=== PATIENT | female | born 1995 | race Caucasian/White ===

== ENCOUNTER 2019-09-28 06:36 | Inpatient (IN) | payer SELFPAY ==
[2019-09-24 13:42] LABS: BASOPHILS % 0.3 % (0.0-1.0); EOSINOPHILS # (AUTO) 0.1 (0.0-0.4); EOSINOPHILS % 0.7 % (0.0-6.0); HEMOGLOBIN 12.4 g/dL (12.0-16.0); LYMPHOCYTES % 22.8 % (18.0-39.1); MEAN CORPUSCULAR HEMOGLOBIN 25.2 pg (28-32); MEAN CORPUSCULAR VOLUME 81.3 fL (81-99); MONOCYTES # (AUTO) 0.5 (0.2-0.8); MONOCYTES % 5.2 % (4.4-11.3); NEUTROPHILS # (AUTO) 6.1 (2.1-6.9); NEUTROPHILS % 70.7 % (38.7-80.0); PLATELET COUNT 380 x10e3/uL (140-360); RED BLOOD COUNT 4.92 x10e6/uL (3.6-5.1); RED CELL DISTRIBUTION WIDTH 14.6 % (11.7-14.4)
[~2019-09-28] VITALS: Ht 157.5 cm; Wt 86.6 kg
[~2019-09-28 06:36] MED LIST: LUTERA1 EACH PO; NEXIUM20 MG PO; PROBIOTICS PO; TRAZODONE HCL50 MG PO; VIIBRYD1 EAC1 PO; WELLBUTRIN SR150 MG PO
[2019-09-28] MEDS ORDERED: MELATONIN3 MG PO (06:50)
[2019-09-28] MEDS ORDERED: CEFAZOLIN SOD 1 GM/NS 50ML 100 ML IV ONE (07:06)
[2019-09-28] MEDS ORDERED: BUPIVACAINE 0.25% 30ML SDV INJ ONE (07:18)
[2019-09-28] MEDS ORDERED: LIDOCAINE HCL (LTA) 4 ML SOLN ONE (08:20)
[2019-09-28] MEDS ORDERED: SCOPOLAMINE 1.5 MG PATCH ONE (08:20)
[2019-09-28] MEDS ORDERED: ACETAMINOPHEN 1000 MG/100 ML 100 ML IV ONE (08:20)
[2019-09-28] MEDS ORDERED: DEXAMETHASONE SOD PHOS 10 MG/1 ML VIAL ONE (08:28)
[2019-09-28] MEDS ORDERED: SCOPOLAMINE 1.5 MG PATCH TOP SCH (09:15)
--- NOTE | 2019-09-28 10:13 | NUR ---
[facility] H&P: [id number]
[2019-09-28] MEDS ORDERED: FENTANYL CITRATE/PF 100MCG/2 ML INJ ONE ×2 (10:41→14:48)
--- NOTE | 2019-09-28 10:58 | History and Physical ---
REASON FOR ADMISSION: Weight loss surgery. HISTORY: This is a 23-year-old woman who was admitted to [facility] with diagnosis of obesity (BMI 36). Today, the patient underwent successful vertical sleeve gastrectomy performed by Dr. Kike Thomas. The patient tolerated surgery quite well. She is currently in the postanesthesia care unit. Complete blood count performed on September 24, 2019 was unremarkable. Her jimenez virus test also performed that day was negative. REVIEW OF SYSTEMS: GENERAL: Weight has been stable. No fever or chills. HEENT: No headaches. No visual changes. CARDIOVASCULAR: No chest pain. No short of breath or cough. GI: No complaints. She does not complain abdominal pain. She also denies any nausea or vomiting. The patient, however, is very somnolent. : No Saldana catheter in place. NEUROMUSCULAR: No limb weakness or numbness. ALLERGIES: HYDROCODONE. HOME MEDICATIONS: 1. Bupropion sustained release 150 mg daily. 2. Nexium 20 mg daily. 3. Levonorgestrel-estradiol (Lutera) one tablet daily. 4. Melatonin 3 mg at bedtime p.r.n. insomnia. 5. Trazodone 50 mg daily. 6. Viibryd 10 mg daily. 7. Probiotics once daily. PAST SURGICAL HISTORY: 1. Tonsillectomy. 2. Bilateral tympanostomy tubes placement. 3. [place] tooth extraction. 4. Sleeve gastrectomy (laparoscopic) today. FAMILY HISTORY: Noncontributory. SOCIAL HISTORY: The patient is single. No history of tobacco or alcohol use. PAST MEDICAL HISTORY: 1. Depression. 2. Obesity, BMI 36. 3. Asthma. 4. GERD. PHYSICAL EXAMINATION: GENERAL: She is somnolent, but arousable. She is in the post anesthesia care unit as previously stated. VITAL SIGNS: Height 5 feet 2 inches, weight 200 pounds, BMI 36. Blood pressure is 134/78, pulse is 110, and oxygen saturation 100% on a Ventimask. She is afebrile. Respiratory rate is 16. INTEGUMENT: Skin is warm and dry. No pallor, jaundice, or diaphoresis. HEENT: Anicteric sclerae. Moist mucous membranes. NECK: Supple. CARDIAC: Tachycardic rate and rhythm. LUNGS: She moves air freely bilaterally. ABDOMEN: Soft. Laparoscopic incisions are clean, dry, and intact. No drainage appreciated. No bowel sounds are auscultated at this time. EXTREMITIES: No edema or deformity. She is currently wearing sequential compression devices. NEUROLOGIC: She is neurologically intact. She is very somnolent, but she does move all four extremities. DIAGNOSES: 1. Obesity, BMI 36. 2. Status post vertical sleeve gastrectomy. 3. Depression. 4. Asthma. 5. GERD. PLAN: 1. Mobilize the patient. 2. Pain control. 3. If the patient tolerates clear liquid diet and her pain is controlled, she may be discharged home today according to the bariatric surgeon. I spent 40 minutes in care of this patient. MD MADY Wilcox/AMARILIS /[id number]
[2019-09-28] MEDS: MORPHINE SULFATE 2 MG/ML SYR 1ML IV PRN ×3 (11:15→16:32)
[2019-09-28] MEDS ORDERED: METOCLOPRAMIDE HCL 10 MG/2ML VIAL ONE (11:23)
[2019-09-28] MEDS ORDERED: PROMETHAZINE HCL (IM) 25 MG/ML VIAL ONE (11:23)
--- NOTE | 2019-09-28 12:05 | NUR ---
pt arrived to room 105 from PACU via stretcher. pt awake, alert, oriented X3, no signs of distress. in stable condition. will continue to monitor.
[2019-09-28 12:46] VITALS: BP 134/91
[2019-09-28] MEDS: LACTATED RINGER'S 1,000 ML IV SCH ×2 (14:14→17:15)
[2019-09-28 14:24] VITALS: BP 134/91
[2019-09-28] MEDS ORDERED: MIDAZOLAM HCL 2 MG/2 ML VIAL ONE (14:48)
--- NOTE | 2019-09-28 16:17 | NUR ---
Nutrition Screen Note RD Recommendation for Physician: -Recommend bariatric diet Plan of Care: RD following, monitoring for tolerance and adequacy Nutrition reason for involvement: consult for diet education bariatric diet Primary Diagnose(s): vertical sleeve gastrectomy surgery PMH: Depression, Obesity, Asthma, GERD. Ht: 62 in Wt:191 lb BMI: 34.9 kg/m2 IBW:[address] Assessment: (09/28/19) Chart reviewed. Labs and meds reviewed. Pt is a 23 year old female admitted for vertical sleeve gastrectomy surgery. Pt reports she had been eating about 50% of her meals prior to admission and had lost 4 lbs. No N/V/D/C or chewing/swallowing issues noted. Bariatric diet education materials were provided. Will continue to monitor. Current Diet: clear liquids Malnutrition Evaluation (09/28/19) The patient does not meet criteria for a specified degree of malnutrition at this time. Will re-evaluate at follow-up as appropriate. Diet Education Needs Assessment: Diet education indicated. Pt was not interested in verbal education at time of visit. Pt stated she will read the educational materials provided regarding following the bariatric diet (clear liquid, full liquid, and pureed). RD encouraged pt to contact RD if she has questions. Nutrition Care Level: low Signed: Grace Hansen, CONNIE, LD
[2019-09-28 16:37] VITALS: BP 119/92
--- NOTE | 2019-09-28 17:29 | Operative Report ---
DATE OF PROCEDURE: 09/28/2019 SURGEON: Kike Thomas MD PREOPERATIVE DIAGNOSIS: Morbid obesity, BMI 35. POSTOPERATIVE DIAGNOSIS: Morbid obesity, BMI 35. PREOPERATIVE INDICATION: Treat disease, prevent complications related to comorbid conditions of obesity. PROCEDURE: Laparoscopic vertical sleeve gastrectomy. ANESTHESIA: General. DIESEL ENGINE SPECIALIST: Sander Kelly, surgical device sales representative (needed due to complexity of case). FLUIDS: As per anesthesia. ESTIMATED BLOOD LOSS: 10 mL. DRAINS: None. COMPLICATIONS: None. SPECIMENS: Partial stomach. GRAFTS: None. FINDINGS: 1. Normal upper GI anatomy. 2. Negative intraoperative leak test. PROCEDURE IN DETAIL: The patient was brought to the operating room and was intubated under general endotracheal anesthesia. She was sterilely prepped and draped in the usual fashion. A preprocedure pause was performed identifying the patient, use of perioperative antibiotics, intended procedure, and staff surgeon. Access was gained via a 5 mm left subcostal incision using a Veress needle. The abdomen was insufflated. Four additional trocars placed in the standard positions. The liver retractor was used to expose the stomach. I mobilized the greater curvature of stomach from 3 cm proximal to the pyloric valve to the left bienvenido of the diaphragm using the [place] LigaSure device. A 32-[place] bougie was inserted along the lesser curvature of the stomach. The greater curvature of stomach was resected with five firings of a 60 mm purple load LawnStartertronic stapling device. Hemoclips were applied on the staple line were necessary. We did a leak test by submerging the sleeve under saline. No leaks were identified. The specimen was removed through the right periumbilical port site. The port site was closed with 0 Vicryl suture using a Matt-Maurer technique. We then verified hemostasis and removed the liver retractor and desufflated the abdomen. Trocars were removed. Incision sites were closed with 4-0 Monocryl suture in subcuticular fashion. Dermabond dressings were applied. 0.25% bupivacaine was used both at the preperitoneal incision site. The patient tolerated procedure well. Type of wound is type 2, clean, contaminated. All surgical sponge and instrument counts were correct. Kike Thomas MD Yancy/CHERIEL /[id number]
--- NOTE | 2019-09-28 18:55 | NUR ---
RECEIVED REPORT FROM PREVIOUS NURSE. CALL LIGHT WITHIN REACH. PATIENT IN BED. PATIENT IN NO PAIN.
--- NOTE | 2019-09-28 19:00 | NUR ---
bedside shift report given to PM nurse. pt awake, alert, in stable condition.
[2019-09-28 20:00] VITALS: BP 122/83
[2019-09-28] MEDS ORDERED: ENOXAPARIN SOD INJ 40 MG/0.4 ML SYR SC SCH (20:00)
[2019-09-28] MEDS ORDERED: ROCURONIUM BROMIDE 10 MG/ML 5ML VIAL IV ONE (20:02)
[2019-09-28] MEDS ORDERED: ACETAMINOPHEN 1000 MG/100 ML IV ONE (20:02)
[2019-09-28] MEDS ORDERED: SEVOFLURANE INHAL SOLN 250 ML PEN BTL ONE (20:02)
[2019-09-28] MEDS ORDERED: DEXAMETHASONE SOD PHOS INJ 4 MG/ML VIAL ONE (20:02)
[2019-09-28] MEDS ORDERED: LIDOCAINE HCL 2% LOCAL INJ 5 ML SDV VIAL INJ ONE (20:02)
[2019-09-28] MEDS ORDERED: PROPOFOL IV EMULSION 10 MG/ML 20 ML VIAL ONE (20:02)
[2019-09-28] MEDS ORDERED: ONDANSETRON HCL INJ 2MG/ML 2ML 2 MG/ML VIAL ONE (20:02)
[2019-09-28 20:55] VITALS: BP 122/83
[2019-09-29] VITALS: BP 128/84
[2019-09-29] MEDS: ONDANSETRON HCL INJ 2MG/ML 2ML 2 MG/ML VIAL IV PRN ×2 (00:10→07:35)
[2019-09-29] MEDS: MORPHINE SULFATE 2 MG/ML SYR 1ML IV PRN ×2 (00:10→07:35)
[2019-09-29] MEDS: LACTATED RINGER'S 1,000 ML IV SCH (00:22)
[2019-09-29 04:00] VITALS: BP 129/90
[2019-09-29 05:26] LABS: BASOPHILS % 0.2 % (0.0-1.0); HEMATOCRIT 36.9 % (34.2-44.1); HEMOGLOBIN 11.6 g/dL (12.0-16.0); LYMPHOCYTES # (AUTO) 1.8 (1.0-3.2); LYMPHOCYTES % 19.8 % (18.0-39.1); MEAN CORPUSCULAR HEMOGLOBIN 25.6 pg (28-32); MEAN CORPUSCULAR HGB CONC 31.4 g/dL (31-35); MEAN CORPUSCULAR VOLUME 81.5 fL (81-99); MONOCYTES # (AUTO) 0.6 (0.2-0.8); MONOCYTES % 6.5 % (4.4-11.3); NEUTROPHILS # (AUTO) 6.7 (2.1-6.9); NEUTROPHILS % 73.2 % (38.7-80.0); PLATELET COUNT 317 x10e3/uL (140-360); RED BLOOD COUNT 4.53 x10e6/uL (3.6-5.1); RED CELL DISTRIBUTION WIDTH 14.3 % (11.7-14.4)
[2019-09-29 05:53] LABS: ALANINE AMINOTRANSFERASE 43 IU/L (0-55); ALBUMIN 3.6 g/dL (3.5-5.0); ALBUMIN/GLOBULIN RATIO 1.1 (0.8-2.0); ALKALINE PHOSPHATASE 57 IU/L (40-150); ANION GAP 13.9 mmol/L (8-16); BLOOD UREA NITROGEN 6 mg/dL (7-26); BUN/CREATININE RATIO 8 (6-25); CALCIUM 9.5 mg/dL (8.4-10.2); CARBON DIOXIDE 23 mmol/L (22-29); CHLORIDE 105 mmol/L (98-107); CREATININE, SERUM 0.71 mg/dL (0.57-1.11); EST GLOMERULAR FILTRATION RATE > 60 ML/MIN (60-); GLUCOSE 71 mg/dL (74-118); MAGNESIUM 2.1 MG/DL (1.3-2.1); PHOSPHORUS 2.8 MG/DL (2.3-4.7); POTASSIUM 3.9 mmol/L (3.5-5.1); SODIUM 138 mmol/L (136-145)
[2019-09-29] MEDS ORDERED: ACETAMINOPHEN/CODEINE 300MG - 30MG TAB PO PRN (07:00)
--- NOTE | 2019-09-29 07:07 | NUR ---
GAVE BEDSIDE SHIFT REPORT TO ONCOMING NURSE. CALL LIGHT WITHIN REACH. PATIENT IN BED. HOURLY ROUNDING PERFORMED
[2019-09-29] MEDS ORDERED: HYDROCODONE/APAP 7.5MG-325MG 1 EA TAB PO PRN (07:15)
--- NOTE | 2019-09-29 07:32 | Discharge Summary ---
ADMITTIMG DIAGNOSES: 1. Obesity, BMI 36, complicating underlying gastroesophageal reflux disease. 2. Gastroesophageal reflux disease. 3. Asthma. DISCHARGE DIAGNOSES: 1. Status post vertical sleeve gastrectomy. 2. BMI 36, complicating underlying gastroesophageal reflux disease. 3. Asthma. 4. Gastroesophageal reflux disease. HOSPITAL COURSE: This is a 23-year-old white woman, who was initially admitted to [facility] with a diagnosis of obesity, BMI 36, complicating underlying GERD and asthma. During this hospitalization, the patient underwent successful vertical sleeve gastrectomy performed by Dr. Kike Thomas. The patient tolerated surgery quite well. On discharge, the patient was tolerating a liquid diet. She was also experiencing belching prior to discharge. The patient's complete blood count and comprehensive metabolic profile were both within normal limits on discharge. The patient's condition on discharge is stable. DISCHARGE MEDICATIONS: 1. Tylenol No. 3, one pill every 4 hours p.r.n. pain, 30 prescribed, no refills. 2. Zofran 4 mg one p.o. q.4 hours p.r.n. nausea, vomiting, 20 pills prescribed, no refills. 3. Bupropion SR 150 mg daily. 4. Nexium 20 mg daily. 5. Levonorgestrel-ethinyl estradiol (Lutera) one tablet daily. 6. Melatonin 3 mg at bedtime p.r.n. 7. Trazodone 50 mg p.o. daily. 8. Viibryd 10 mg daily. 9. Probiotics once daily. FOLLOWUP INSTRUCTIONS: The patient is instructed to follow up Dr. Kike Thomas within 1 week and with her primary care physician, namely Dr. Cortez Moctezuma within 2 weeks. MD MADY Wilcox/AMARILIS /[id number] cc: MD Cortez Gomes MD
--- NOTE | 2019-09-29 07:40 | NUR ---
INITIAL ASSESSMENT COMPLETE, DR CANALES HERE TO SEE PT, DISCHARGE ORDERS RECEIVED, PT UP TO BATHROOM, SCDS ON PT, IV INTACT, VS WNL, TROCAR SITES X 5 TO ABD COVERED WITH GLUE, NO DISCHARGE NOTED, CLEAN AND DRY, CALL LIGHT IN REACH, BREAKFAST TO PT, CONTINUE TO MONITOR.
[2019-09-29 07:57] VITALS: BP 136/88
--- NOTE | 2019-09-29 08:35 | NUR ---
GAVE PACKET OF INFORMATION WITH COMMUNITY [employer] FOR ASSISTANCE WITH LOW TO NO INCOME TO PATIENT. RESOURCES THAT PATIENT MAY BE ABLE TO FOLLOW UP UPON DISCHARGE. PT EDUCATED ON EACH RESOURCE AND UNDERSTANDING HOW TO FOLLOW UP TO SEE IF QUALIFIED FOR EACH RESOURCE.
[2019-09-29 09:00] VITALS: BP 136/88
--- NOTE | 2019-09-29 09:00 | NUR ---
PT DISCHARGED, IV TAKEN OUT, DISCHARGE INSTRUCTIONS GIVE, PRESCRIPTIONS GIVEN TO PT, VS WNL, PT TAKEN OUT TO PRIVATE VEHICLE VIA W/C,
--- NOTE | 2019-09-29 09:06 | NUR ---
Progress Note S: No major complaints O: AF, VSS General- no distress Abd- soft, incisions c/d/i A/P: POD 1, s/p LSG Doing well -Clears, ambulate, dc home -Diet instructions given to patient -Follow up in 1 week in clinic
== END 2019-09-29 08:55 | disposition home or self-care (01) | DRG 621 ==
LOC: OR 06:36 → EDSEX 08:30 → PACU V 11:20 → MED/SURG 12:16
PROVIDERS: ADMIT Internal Medicine; ATTEND Internal Medicine
PROC: 0DB64Z3 Excision of Stomach, Percutaneous Endoscopic Approach, Vertical (ICD-10-PCS; principal; 2019-09-28 08:30)
DX: E66.01 Morbid (severe) obesity due to excess calories (principal); Z68.35 Body mass index [BMI] 35.0-35.9, adult; K21.9 Gastro-esophageal reflux disease without esophagitis; E28.2 Polycystic ovarian syndrome; Z88.5 Allergy status to narcotic agent; Z91.018 Allergy to other foods; F32.9 Major depressive disorder, single episode, unspecified; J45.909 Unspecified asthma, uncomplicated; Z11.59 Encounter for screening for other viral diseases
CPT/HCPCS: 36415; 80053; 81025; 82948; 83735; 84100; 85025; 87635; J0690; J1100; J1650; J2001; J2250; J2270; J2405; J2550; J2765; J3010; J7121